=== PATIENT | female | born 1975 | race Two or more races ===

== ENCOUNTER 2017-02-26 13:38 | Emergency (ER) | payer SELFPAY ==
[~2017-02-26] VITALS: Ht 121.9 cm; Wt 72.6 kg
[2017-02-26] MEDS ORDERED: NKM (13:46)
[2017-02-26] MEDS ORDERED: Famotidine 20 MG/ 2ML VIAL IVP ONE (14:00)
[2017-02-26] MEDS ORDERED: Dicyclomine HCl 10mg/5ml oral soln ORAL ONE (14:00)
[2017-02-26] MEDS ORDERED: Lidocaine 2% Visc 15ml soln ORAL ONE (14:00)
[2017-02-26] MEDS ORDERED: Mylanta II UD 30ml ORAL ONE (14:00)
[2017-02-26 14:12] LABS: MEAN CORPUSCULAR HEMOGLOBIN 22.9 PG (27.0-31.0); MEAN CORPUSCULAR HGB CONC 29.9 G/DL (32.0-36.0); MEAN CORPUSCULAR VOLUME 76 FL (80-99); MEAN PLATELET VOLUME 7.6 FL (6.5-10.1); PLATELET COUNT 419 K/UL (150-450); RED BLOOD COUNT 4.45 M/UL (4.20-5.40); RED CELL DISTRIBUTION WIDTH 15.7 % (11.6-14.8); WHITE BLOOD COUNT 12.6 K/UL (4.8-10.8)
[2017-02-26 14:14] LABS: APPEARANCE,URINE SLIGHTLY CLOUDY; KETONES,URINE 2+ (NEGATIVE); LEUKOCYTE ESTERASE ,URINE 2+ (NEGATIVE); NITRITE,URINE NEGATIVE (NEGATIVE); PH,URINE 6.5 (4.5-8.0); PROTEIN,URINE 2+ (NEGATIVE); UROBILINOGEN,URINE NORMAL MG/DL (0.0-1.0)
[2017-02-26 14:22] LABS: BACTERIA,URINE MODERATE /HPF; SQUAMOUS EPITHELIAL CELL,UR MANY /LPF (NONE/OCC); WBC,URINE 30-40 /HPF (0 - 2)
[2017-02-26 14:30] LABS: ALANINE AMINOTRANSFERASE 12 U/L (3-33); ALBUMIN/GLOBULIN RATIO 1.1 (1.0-2.7); ANION GAP 21 (5-15); ASPARTATE AMINO TRANSFERASE 22 U/L (5-40); CALCIUM 8.8 mg/dL (8.6-10.2); CARBON DIOXIDE 18 mEQ/L (20-30); CHLORIDE 98 mEQ/L (98-107); CREATININE 0.6 mg/dL (0.5-0.9); GLOMERULAR FILTRATION RATE > 60 mL/min (>60); HEMOLYSIS 1; LIPASE 32 U/L (< 60); POTASSIUM 2.9 mEQ/L (3.4-4.9); SODIUM 137 mEQ/L (135-145); TOTAL PROTEIN 7.9 g/dL (6.6-8.7)
[2017-02-26 14:35] LABS: BAND NEUTROPHILS % (MANUAL) 0 % (0-8); BASOPHILS % (MANUAL) 0 % (0-2); EOSINOPHILS % (MANUAL) 0 % (0-3); LYMPHOCYTES % (MANUAL) 6 % (20-45); NEUTROPHILS % (MANUAL) 90 % (45-75); PLATELET ESTIMATE ADEQUATE; TOTAL CELLS COUNTED 100
[2017-02-26 14:36] LABS: ANISOCYTOSIS 1+; HYPOCHROMASIA 1+; MICROCYTES 1+; PLATELET MORPHOLOGY NORMAL
[2017-02-26] MEDS ORDERED: cefTRIAXone 1 GM in NS 55 ML IVPB ONE (14:45)
--- NOTE | 2017-02-26 15:02 | Emergency Room Report ---
History of Present Illness General Chief Complaint: Nausea, Vomiting, and Diarrhea Source: Patient Present Illness HPI 41-year-old female presents to ED complaining of abdominal pain with vomiting and diarrhea. States symptoms started this morning. Notes cramping abdominal pain, 4/10, nonradiating. With full episodes of watery diarrhea and vomiting. Patient states she feels weak. Denies fevers chills. Denies recent antibiotic use or travel. No other aggravating relieving factors. Denies any other associated symptoms Allergies: Coded Allergies: No Known Allergies (Unverified , 02/26/17) Patient History Past Medical History: none Past Surgical History: none Pertinent Family History: none Social History: Denies: alcohol use, drug use, smoking Last Menstrual Period: 01/28/17 Now: No : 3 Para: 4 Immunizations: UTD Reviewed Nursing Documentation: PMH: Agreed, PSxH: Agreed Nursing Documentation-PMH Past Medical History: No Stated History Review of Systems All Other Systems: negative except mentioned in HPI Physical Exam Vital Signs Date Time Temp Pulse Resp B/P Pulse Ox O2 Delivery O2 Flow Rate FiO2 02/26/17 13:44 98.2 88 20 163/73 100 Room Air Sp02 EP Interpretation: reviewed, normal General Appearance: no apparent distress, alert, GCS 15, non-toxic Head: normocephalic, atraumatic Eyes: bilateral eye PERRL, bilateral eye normal inspection ENT: hearing grossly normal, normal pharynx, no angioedema, normal voice Neck: full range of motion, supple/symm/no masses Respiratory: chest non-tender, lungs clear, normal breath sounds, speaking full sentences Cardiovascular #1: regular rate, rhythm, no edema Cardiovascular #2: 2+ carotid (R), 2+ carotid (L), 2+ radial (R), 2+ radial (L) , 2+ dorsalis pedis (R), 2+ dorsalis pedis (L) Gastrointestinal: normal bowel sounds, soft, non-distended, no guarding, no rebound, tenderness Rectal: deferred Genitourinary: normal inspection, no CVA tenderness Musculoskeletal: back normal, gait/station normal, normal range of motion, non- tender Neurologic: alert, oriented x3, responsive, motor strength/tone normal, sensory intact, speech normal Psychiatric: judgement/insight normal, memory normal, mood/affect normal, no suicidal/homicidal ideation Reflexes: 3+ bicep (R), 3+ bicep (L), 3+ tricep (R), 3+ tricep (L), 3+ knee (R) , 3+ knee (L) Skin: normal color, no rash, warm/dry, well hydrated Lymphatic: no adenopathy Medical Decision Making Diagnostic Impression: Primary Impression: UTI (urinary tract infection) Qualified Codes: N39.0 - Urinary tract infection, site not specified Additional Impression: Gastroenteritis ER Course Hospital Course 41-year-old F presents to ED with cramping abdominal pain with vomiting, diarrhea differential diagnosis: gastritis, SBO, cholecystits, gastroenteritis Clinical course Patient placed on stretcher. 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 After initial history and physical I ordered labs, IV fluids, Zofran and pepcid Labs - minimal leukocytosis, K 2.8, LFTs normal, UA + bacteria Upon reassessment, patient states pain has improved. findings consistent with gastroenteritis Given dose of Rocephin in ED. Potassium repleted I feel this is a highly complex case requiring extensive working including EKG/ Rhythm strip, Xray/CT/US, Blood/urine lab work, repeat exams while in ED, and administration of strong opiates/narcotics for pain control, admission to hospital or close patient follow up. Diagnosis - gastroenteritis, UTI Stable and discharged to home with prescriptions for zofran, keflex, bentyl. Followup with PMD. Return to ED if symptoms recur or worsen Labs Test 02/26/17 13:51 White Blood Count 12.6 K/UL (4.8-10.8) Red Blood Count 4.45 M/UL (4.20-5.40) Hemoglobin 10.2 G/DL (12.0-16.0) Hematocrit 34.0 % (37.0-47.0) Mean Corpuscular Volume 76 FL (80-99) Mean Corpuscular Hemoglobin 22.9 PG (27.0-31.0) Mean Corpuscular Hemoglobin Concent 29.9 G/DL (32.0-36.0) Red Cell Distribution Width 15.7 % (11.6-14.8) Platelet Count 419 K/UL (150-450) Mean Platelet Volume 7.6 FL (6.5-10.1) Neutrophils (%) (Auto) % (45.0-75.0) Lymphocytes (%) (Auto) % (20.0-45.0) Monocytes (%) (Auto) % (1.0-10.0) Eosinophils (%) (Auto) % (0.0-3.0) Basophils (%) (Auto) % (0.0-2.0) Differential Total Cells Counted 100 Neutrophils % (Manual) 90 % (45-75) Lymphocytes % (Manual) 6 % (20-45) Monocytes % (Manual) 4 % (1-10) Eosinophils % (Manual) 0 % (0-3) Basophils % (Manual) 0 % (0-2) Band Neutrophils 0 % (0-8) Platelet Estimate Adequate Platelet Morphology Normal Hypochromasia 1+ Anisocytosis 1+ Microcytosis 1+ Urine Color Pale yellow Urine Appearance Slightly cloudy Urine pH 6.5 (4.5-8.0) Urine Specific [place] 1.010 (1.005-1.035) Urine Protein 2+ (NEGATIVE) Urine Glucose (UA) Negative (NEGATIVE) Urine Ketones 2+ (NEGATIVE) Urine Occult Blood 5+ (NEGATIVE) Urine Nitrite Negative (NEGATIVE) Urine Bilirubin Negative (NEGATIVE) Urine Urobilinogen Normal MG/DL (0.0-1.0) Urine Leukocyte Esterase 2+ (NEGATIVE) Urine RBC 5-10 /HPF (0 - 2) Urine WBC 30-40 /HPF (0 - 2) Urine Squamous Epithelial Cells Many /LPF (NONE/OCC) Urine Bacteria Moderate /HPF (NONE) Urine HCG, Qualitative Negative Sodium Level 137 mEQ/L (135-145) Potassium Level 2.9 mEQ/L (3.4-4.9) Chloride Level 98 mEQ/L (98-107) Carbon Dioxide Level 18 mEQ/L (20-30) Anion Gap 21 (5-15) Blood Urea Nitrogen 14 mg/dL (7-23) Creatinine 0.6 mg/dL (0.5-0.9) Estimat Glomerular Filtration Rate > 60 mL/min (>60) Glucose Level 118 mg/dL (74-106) Calcium Level 8.8 mg/dL (8.6-10.2) Total Bilirubin 0.3 mg/dL (0.0-1.2) Aspartate Amino Transf (AST/SGOT) 22 U/L (5-40) Alanine Aminotransferase (ALT/SGPT) 12 U/L (3-33) Alkaline Phosphatase 66 U/L (35-104) Total Protein 7.9 g/dL (6.6-8.7) Albumin 4.3 g/dL (3.5-5.2) Globulin 3.6 g/dL Albumin/Globulin Ratio 1.1 (1.0-2.7) Lipase 32 U/L (< 60) Last Vital Signs Date Time Temp Pulse Resp B/P Pulse Ox O2 Delivery O2 Flow Rate FiO2 02/26/17 13:44 98.2 88 20 163/73 100 Room Air Status: improved Disposition: HOME, SELF-CARE Condition: Stable Scripts Cephalexin* (KEFLEX*) 500 Mg Capsule 500 MG ORAL Q6H, #28 CAP 0 Refills Prov: GALINDO BEATTY M.D. 02/26/17 Dicyclomine Hcl* (BENTYL*) 10 Mg Capsule 10 MG ORAL FOUR TIMES A DAY, #20 CAP Prov: GALINDO BEATTY M.D. 02/26/17 Ondansetron Odt* (ZOFRAN ODT*) 4 Mg Tab.rapdis 4 MG ORAL Q6H Y for Nausea & Vomiting, #30 TAB 0 Refills Prov: GALINDO BEATTY M.D. 02/26/17 Referrals: NOT CHOSEN RADHA/,REFERRING (PCP) GALINDO BEATTY M.D. Feb 26, 2017 15:02
[2017-02-26 15:27] VITALS: BP 124/73
[2017-02-26] MEDS ORDERED: KEFLEX500 MG ORAL (15:34)
[2017-02-26] MEDS ORDERED: ZOFRAN ODT4 MG ORAL (15:34)
[2017-02-26] MEDS ORDERED: BENTYL10 MG ORAL (15:34)
[2017-02-26 15:56] VITALS: BP 123/69
== END 2017-02-26 15:56 | disposition home or self-care (01) ==
LOC: EMR 14:16
DX: N39.0 Urinary tract infection, site not specified (principal); K52.9 Noninfective gastroenteritis and colitis, unspecified; D72.829 Elevated white blood cell count, unspecified
CPT/HCPCS: 36415; 80053; 81003; 81025; 83690; 85007; 85025; 87086; 96374; 96375; 99284; J0696; J2405; S0028; J8499

== ENCOUNTER 2017-05-30 16:24 | Inpatient (IN) | payer MEDICAID ==
[~2017-05-30] VITALS: Ht 152.4 cm; Wt 68.0 kg
[~2017-05-30 16:24] MED LIST: BENTYL10 MG ORAL; KEFLEX500 MG ORAL; NKM; ZOFRAN ODT4 MG ORAL
[2017-05-30 17:44] LABS: APPEARANCE,URINE CLEAR; KETONES,URINE NEGATIVE (NEGATIVE); LEUKOCYTE ESTERASE ,URINE NEGATIVE (NEGATIVE); NITRITE,URINE NEGATIVE (NEGATIVE); PH,URINE 8 (4.5-8.0); PROTEIN,URINE NEGATIVE (NEGATIVE); UROBILINOGEN,URINE NORMAL MG/DL (0.0-1.0)
[2017-05-30 17:44] LABS: BASOPHILS % (AUTO) 1.1 % (0.0-2.0); EOSINOPHILS % (AUTO) 0.6 % (0.0-3.0); LYMPHOCYTES % (AUTO) 12.4 % (20.0-45.0); MEAN CORPUSCULAR HEMOGLOBIN 21.3 PG (27.0-31.0); MEAN CORPUSCULAR HGB CONC 27.8 G/DL (32.0-36.0); MEAN CORPUSCULAR VOLUME 77 FL (80-99); MEAN PLATELET VOLUME 5.9 FL (6.5-10.1); MONOCYTES % (AUTO) 5.6 % (1.0-10.0); NEUTROPHILS % (AUTO) 80.3 % (45.0-75.0); PLATELET COUNT 409 K/UL (150-450); RED BLOOD COUNT 3.81 M/UL (4.20-5.40); RED CELL DISTRIBUTION WIDTH 14.9 % (11.6-14.8); WHITE BLOOD COUNT 9.8 K/UL (4.8-10.8)
--- NOTE | 2017-05-30 17:45 | Emergency Room Report ---
History of Present Illness General Chief Complaint: Dizziness Source: Patient Present Illness HPI 42-year-old female presents to the emergency department complaining of several episodes x1 month of feeling dizzy and presyncopal. Patient reports one month ago she did have syncopal episode while at [employer] patient states that she begins to feel dizzy, breaks out in a cold sweat and feels as though she was going to faint. Patient denies chest pain, palpitations, FLETCHER, tinnitus, vertigo , loss of vision or floaters. She denies Past medical history or pertinent family medical history. She states she is otherwise healthy. No recent head trauma. no neck or back pain. She denies recent illness other than GE over a month ago,denies recent travel. pt. reports craving ice frequently, denies daily lethargy. pt. denies N/V/F/C. pt. reports heavy periods. Denies Changes in Vision, Sensation, paresthesias, or a sudden severe headache. Allergies: Coded Allergies: No Known Allergies (Unverified , 02/26/17) Patient History Past Medical History: see triage record Past Surgical History: none Pertinent Family History: none Last Menstrual Period: 05/22/17 Now: No Immunizations: UTD Reviewed Nursing Documentation: PMH: Agreed, PSxH: Agreed Nursing Documentation-PMH Past Medical History: No Stated History Review of Systems All Other Systems: negative except mentioned in HPI Physical Exam Vital Signs Date Time Temp Pulse Resp B/P (MAP) Pulse Ox O2 Delivery O2 Flow Rate FiO2 05/30/17 16:32 98.1 89 18 167/93 100 Room Air Sp02 EP Interpretation: reviewed, normal General Appearance: no apparent distress, alert, GCS 15, non-toxic Head: normocephalic, atraumatic Eyes: bilateral eye normal inspection, bilateral eye PERRL ENT: hearing grossly normal, normal voice Neck: full range of motion, supple/symm/no masses Respiratory: chest non-tender, lungs clear, normal breath sounds, speaking full sentences Cardiovascular #1: regular rate, rhythm, no edema, normal capillary refill Gastrointestinal: normal bowel sounds, non tender, soft, no guarding, no rebound Rectal: deferred Genitourinary: normal inspection, no CVA tenderness Musculoskeletal: back normal, gait/station normal, normal range of motion, non- tender, no calf tenderness Neurologic: alert, oriented x3, responsive, motor strength/tone normal, sensory intact, cerebellar normal, normal gait, speech normal, no pronator, other - equal patient companion strength, negative hoffmans's Psychiatric: judgement/insight normal, memory normal, mood/affect normal Skin: normal color, no rash, warm/dry, well hydrated Medical Decision Making PA Attestation Dr. ayala is my supervising Physician whom patient management has been discussed with. Diagnostic Impression: Primary Impression: Symptomatic anemia Additional Impression: Dizziness ER Course 42-year-old female presents to the emergency department complaining of several episodes x1 month of feeling dizzy and presyncopal. Patient reports one month ago she did have syncopal episode while at [employer] patient states that she begins to feel dizzy, breaks out in a cold sweat and feels as though she was going to faint. Patient denies chest pain, palpitations, FLETCHER, tinnitus, vertigo , loss of vision or floaters. She denies Past medical history or pertinent family medical history. She states she is otherwise healthy. No recent head trauma. no neck or back pain. She denies recent illness other than GE over a month ago,denies recent travel. pt. reports craving ice frequently, denies daily lethargy. pt. denies N/V/F/C. pt. reports heavy periods. Denies Changes in Vision, Sensation, paresthesias, or a sudden severe headache. Ddx considered but are not limited to Mnire's, BPPV, labrinitis, Anemia, cerebellar stroke, hypovolemia, cardiac cause, anxiety reaction Vital signs: are WNL, pt. is afebrile H&PE are most consistent with : normal PE, no neurological deficit. ORDERS: -CBC : moderate anemia RBC's 3.81 Hgb: 8.1, Hct: 29 -CMP: unremarkable -UA: Unremarkable other than some rbc's and occult blood. presence of few bacteria, few squamous, and no inflammatory marker elevation consistent with contamination. - EK BPM NSR - no acute ST changes reviewed by Dr. Leger, his interpretation was scribed by SANJANA Araya -PT/PTT: WNL -Urine Hcg: Negative -Type and Screen: O POSITIVE ED INTERVENTIONS: -1 Liter NS Bolus DISPOSITION: at this time pt. will be admitted to Dr. Gordon for Symptomatic Anemia. Dr. Gordon agreed to admit the pt. and to continue pt. care management. Labs Test 05/30/17 17:03 05/30/17 17:12 05/30/17 19:23 Urine Color Pale yellow Urine Appearance Clear Urine pH 8 (4.5-8.0) Urine Specific [place] 1.010 (1.005-1.035) Urine Protein Negative (NEGATIVE) Urine Glucose (UA) Negative (NEGATIVE) Urine Ketones Negative (NEGATIVE) Urine Occult Blood 4+ (NEGATIVE) Urine Nitrite Negative (NEGATIVE) Urine Bilirubin Negative (NEGATIVE) Urine Urobilinogen Normal MG/DL (0.0-1.0) Urine Leukocyte Esterase Negative (NEGATIVE) Urine RBC 5-10 /HPF (0 - 2) Urine WBC 0-2 /HPF (0 - 2) Urine Squamous Epithelial Cells Few /LPF (NONE/OCC) Urine Bacteria Few /HPF (NONE) White Blood Count 9.8 K/UL (4.8-10.8) Red Blood Count 3.81 M/UL (4.20-5.40) Hemoglobin 8.1 G/DL (12.0-16.0) Hematocrit 29.3 % (37.0-47.0) Mean Corpuscular Volume 77 FL (80-99) Mean Corpuscular Hemoglobin 21.3 PG (27.0-31.0) Mean Corpuscular Hemoglobin Concent 27.8 G/DL (32.0-36.0) Red Cell Distribution Width 14.9 % (11.6-14.8) Platelet Count 409 K/UL (150-450) Mean Platelet Volume 5.9 FL (6.5-10.1) Neutrophils (%) (Auto) 80.3 % (45.0-75.0) Lymphocytes (%) (Auto) 12.4 % (20.0-45.0) Monocytes (%) (Auto) 5.6 % (1.0-10.0) Eosinophils (%) (Auto) 0.6 % (0.0-3.0) Basophils (%) (Auto) 1.1 % (0.0-2.0) Sodium Level 136 MMOL/L (136-145) Potassium Level 3.5 MMOL/L (3.5-5.1) Chloride Level 102 MMOL/L (98-107) Carbon Dioxide Level 25 MMOL/L (21-32) Anion Gap 9 (5-15) Blood Urea Nitrogen 11 mg/dL (7-18) Creatinine 0.8 MG/DL (0.55-1.30) Estimat Glomerular Filtration Rate > 60 mL/min (>60) Glucose Level 128 MG/DL (74-106) Calcium Level 9.1 MG/DL (8.5-10.1) Prothrombin Time 10.7 SEC (9.30-11.50) Prothromb Time International Ratio 1.0 (0.9-1.1) Activated Partial Thromboplast Time 26 SEC (23-33) EKG Diagnostic Results EP Interpretation: Dr. Leger Rate: normal - 69 bpm Rhythm: NSR ST Segments: no acute changes ASA given to the pt in ED: No PA Scribe Text Dr. Leger's preliminary EKG interpretation is being scribed by SANJANA Araya Last Vital Signs Date Time Temp Pulse Resp B/P (MAP) Pulse Ox O2 Delivery O2 Flow Rate FiO2 05/30/17 16:32 98.1 89 18 167/93 100 Room Air Disposition: ADMITTED INPATIENT Condition: Stable Referrals: ISRAEL GARCIA,REFERRING (PCP) Tisha Araya May 30, 2017 17:45
[2017-05-30 17:56] LABS: ANION GAP 9 (5-15); CALCIUM 9.1 MG/DL (8.5-10.1); CARBON DIOXIDE 25 MMOL/L (21-32); CHLORIDE 102 MMOL/L (98-107); CREATININE 0.8 MG/DL (0.55-1.30); GLOMERULAR FILTRATION RATE > 60 mL/min (>60); POTASSIUM 3.5 MMOL/L (3.5-5.1); SODIUM 136 MMOL/L (136-145)
[2017-05-30 18:03] LABS: BACTERIA,URINE FEW /HPF; SQUAMOUS EPITHELIAL CELL,UR FEW /LPF (NONE/OCC); WBC,URINE 0-2 /HPF (0 - 2)
[2017-05-30 20:00] VITALS: BP 154/83
[2017-05-30 20:09] LABS: PROTHROMBIN TIME 10.7 SEC (9.30-11.50)
[2017-05-30] MEDS ORDERED: Mylanta II UD 30ml ORAL PRN (23:15)
[2017-05-30] MEDS ORDERED: Zolpidem 5mg tab ORAL PRN (23:15)
[2017-05-30] MEDS ORDERED: Morphine Sulfate 2mg/ml Inj IVP PRN (23:15)
[2017-05-30] MEDS ORDERED: Miralax 17gm pkt ORAL PRN (23:15)
[2017-05-30] MEDS ORDERED: LORazepam Inj 2mg/ml 1ml IV PRN (23:15)
[2017-05-31 00:24] VITALS: BP 153/98
[2017-05-31 04:00] VITALS: BP 123/74
[2017-05-31 08:15] VITALS: BP 130/80
[2017-05-31 08:34] LABS: MEAN CORPUSCULAR HEMOGLOBIN 22.8 PG (27.0-31.0); MEAN CORPUSCULAR HGB CONC 30.2 G/DL (32.0-36.0); MEAN CORPUSCULAR VOLUME 75 FL (80-99); MEAN PLATELET VOLUME 6.1 FL (6.5-10.1); PLATELET COUNT 443 K/UL (150-450); RED BLOOD COUNT 4.04 M/UL (4.20-5.40); WHITE BLOOD COUNT 3.3 K/UL (4.8-10.8)
[2017-05-31 08:58] LABS: INR 1.1 (0.9-1.1)
[2017-05-31 09:42] LABS: ALANINE AMINOTRANSFERASE 19 U/L (12-78); ALBUMIN/GLOBULIN RATIO 0.8 (1.0-2.7); ANION GAP 9 (5-15); ASPARTATE AMINO TRANSFERASE 17 U/L (15-37); CALCIUM 8.2 MG/DL (8.5-10.1); CARBON DIOXIDE 24 MMOL/L (21-32); CHLORIDE 108 MMOL/L (98-107); CREATININE 0.7 MG/DL (0.55-1.30); GLOMERULAR FILTRATION RATE > 60 mL/min (>60); POTASSIUM 3.3 MMOL/L (3.5-5.1); SODIUM 141 MMOL/L (136-145); THYROID STIMULATING HORMONE 2.844 uiU/mL (0.360-3.740); TOTAL PROTEIN 7.2 G/DL (6.4-8.2)
[2017-05-31 10:09] LABS: ERYTHROCYTE SEDIMENTATION RATE 47 MM/HR (0-20); IRON 21 ug/dL (50-175); TOTAL IRON BINDING CAPACITY 363 ug/dL (250-450)
[2017-05-31 10:47] LABS: LACTATE DEHYDROGENASE 201 U/L (81-234)
[2017-05-31 11:52] VITALS: BP 124/66
[2017-05-31 12:07] LABS: ANISOCYTOSIS 1+; BAND NEUTROPHILS % (MANUAL) 0 % (0-8); BASOPHILS % (MANUAL) 1 % (0-2); EOSINOPHILS % (MANUAL) 2 % (0-3); LYMPHOCYTES % (MANUAL) 25 % (20-45); NEUTROPHILS % (MANUAL) 66 % (45-75); PLATELET ESTIMATE INCREASED; PLATELET MORPHOLOGY NORMAL; TOTAL CELLS COUNTED 100
[2017-05-31 12:08] LABS: HYPOCHROMASIA 2+
[2017-05-31 12:09] LABS: MICROCYTES 1+
[2017-05-31 12:36] LABS: PATH BLOOD SMEAR/OMC SENT TO PATHOLOGIST
[2017-05-31 15:31] VITALS: BP 141/80
--- NOTE | 2017-05-31 15:59 | History and Physical ---
History of Present Illness General Date patient seen: May 30, 2017 Reason for Hospitalization: Dizziness Present Illness HPI 42-year-old female presents to the emergency department complaining of several episodes x1 month of feeling dizzy and presyncopal. Patient denies chest pain , palpitations, FLETCHER, tinnitus, vertigo, loss of vision or floaters. She states she is otherwise healthy. No recent head trauma. no neck or back pain. She denies recent illness other than GE over a month ago,denies recent travel. She was diagnosed to have symptomatic anemia and admitted for further work up. Allergies: Coded Allergies: No Known Allergies (Unverified , 02/26/17) Medication History Scheduled Cephalexin* (Keflex*), 500 MG ORAL Q6H Dicyclomine Hcl* (Bentyl*), 10 MG ORAL FOUR TIMES A DAY No Known Medications* (NKM - No Known Medications*), 0 ., (Reported) Scheduled PRN Ondansetron Odt* (Zofran Odt*), 4 MG ORAL Q6H PRN for Nausea & Vomiting Patient History Healthcare decision maker Resuscitation status Full Code Advanced Directive on File Past Medical/Surgical History Past Medical/Surgical History: (1) Dizziness (2) Anxiety reaction Review of Systems All Other Systems: negative except mentioned in HPI Physical Exam General Appearance: WD/WN, no apparent distress Lines, tubes and drains: peripheral, central line HEENT: normocephalic, atraumatic Neck: non-tender, normal alignment Respiratory/Chest: chest wall non-tender, lungs clear Cardiovascular/Chest: normal peripheral pulses, normal rate Abdomen: normal bowel sounds, non tender Genitourinary/Rectal: normal genital exam Extremities: normal range of motion Neurologic: knuckler II-XII grossly normal Last 24 Hour Vital Signs Date Time Temp Pulse Resp B/P (MAP) Pulse Ox O2 Delivery O2 Flow Rate FiO2 05/31/17 15:31 98.0 89 19 141/80 99 Room Air 05/31/17 11:52 97.7 67 18 124/66 99 Room Air 05/31/17 08:15 97.5 78 19 130/80 100 Room Air 05/31/17 04:00 97.7 69 20 123/74 99 Room Air 05/31/17 00:24 91 16 153/98 99 Room Air 05/31/17 00:24 98.0 91 16 153/98 99 Room Air 05/30/17 20:00 98.3 85 16 154/83 98 Room Air 05/30/17 16:32 98.1 89 18 167/93 100 Room Air Intake and Output 05/31/17 06/01/17 19:00 07:00 Intake Total 240 ml Balance 240 ml Intake Oral 240 ml # Bowel Movements 1 Laboratory Tests Test 05/30/17 17:03 05/30/17 17:12 05/30/17 19:23 05/31/17 06:40 Urine Color Pale yellow Urine Appearance Clear Urine pH 8 (4.5-8.0) Urine Specific [place] 1.010 (1.005-1.035) Urine Protein Negative (NEGATIVE) Urine Glucose (UA) Negative (NEGATIVE) Urine Ketones Negative (NEGATIVE) Urine Occult Blood 4+ (NEGATIVE) H Urine Nitrite Negative (NEGATIVE) Urine Bilirubin Negative (NEGATIVE) Urine Urobilinogen Normal MG/DL (0.0-1.0) Urine Leukocyte Esterase Negative (NEGATIVE) Urine RBC 5-10 /HPF (0 - 2) H Urine WBC 0-2 /HPF (0 - 2) Urine Squamous Epithelial Cells Few /LPF (NONE/OCC) Urine Bacteria Few /HPF (NONE) Urine HCG, Qualitative Negative White Blood Count 9.8 K/UL (4.8-10.8) 3.3 K/UL (4.8-10.8) #L Red Blood Count 3.81 M/UL (4.20-5.40) L 4.04 M/UL (4.20-5.40) L Hemoglobin 8.1 G/DL (12.0-16.0) L 9.2 G/DL (12.0-16.0) L Hematocrit 29.3 % (37.0-47.0) L 30.4 % (37.0-47.0) L Mean Corpuscular Volume 77 FL (80-99) L 75 FL (80-99) L Mean Corpuscular Hemoglobin 21.3 PG (27.0-31.0) L 22.8 PG (27.0-31.0) L Mean Corpuscular Hemoglobin Concent 27.8 G/DL (32.0-36.0) L 30.2 G/DL (32.0-36.0) L Red Cell Distribution Width 14.9 % (11.6-14.8) H 15.0 % (11.6-14.8) H Platelet Count 409 K/UL (150-450) 443 K/UL (150-450) Mean Platelet Volume 5.9 FL (6.5-10.1) L 6.1 FL (6.5-10.1) L Neutrophils (%) (Auto) 80.3 % (45.0-75.0) H % (45.0-75.0) Lymphocytes (%) (Auto) 12.4 % (20.0-45.0) L % (20.0-45.0) Monocytes (%) (Auto) 5.6 % (1.0-10.0) % (1.0-10.0) Eosinophils (%) (Auto) 0.6 % (0.0-3.0) % (0.0-3.0) Basophils (%) (Auto) 1.1 % (0.0-2.0) % (0.0-2.0) Sodium Level 136 MMOL/L (136-145) 141 MMOL/L (136-145) Potassium Level 3.5 MMOL/L (3.5-5.1) 3.3 MMOL/L (3.5-5.1) L Chloride Level 102 MMOL/L (98-107) 108 MMOL/L (98-107) H Carbon Dioxide Level 25 MMOL/L (21-32) 24 MMOL/L (21-32) Anion Gap 9 (5-15) 9 (5-15) Blood Urea Nitrogen 11 mg/dL (7-18) 9 mg/dL (7-18) Creatinine 0.8 MG/DL (0.55-1.30) 0.7 MG/DL (0.55-1.30) Estimat Glomerular Filtration Rate > 60 mL/min (>60) > 60 mL/min (>60) Glucose Level 128 MG/DL (74-106) H 87 MG/DL (74-106) Calcium Level 9.1 MG/DL (8.5-10.1) 8.2 MG/DL (8.5-10.1) L Prothrombin Time 10.7 SEC (9.30-11.50) 11.0 SEC (9.30-11.50) Prothromb Time International Ratio 1.0 (0.9-1.1) 1.1 (0.9-1.1) Activated Partial Thromboplast Time 26 SEC (23-33) 25 SEC (23-33) Differential Total Cells Counted 100 Neutrophils % (Manual) 66 % (45-75) Lymphocytes % (Manual) 25 % (20-45) Monocytes % (Manual) 6 % (1-10) Eosinophils % (Manual) 2 % (0-3) Basophils % (Manual) 1 % (0-2) Band Neutrophils 0 % (0-8) Platelet Estimate Increased H Platelet Morphology Normal Hypochromasia 2+ Anisocytosis 1+ Microcytosis 1+ Erythrocyte Sedimentation Rate 47 MM/HR (0-20) H Reticulocyte Count 1.0 % (0.0-2.0) Iron Level 21 ug/dL (50-175) L Total Iron Binding Capacity 363 ug/dL (250-450) Percent Iron Saturation 6 % (15-50) L Unsaturated Iron Binding 342 ug/dL (112-346) Total Bilirubin 0.3 MG/DL (0.2-1.0) Aspartate Amino Transf (AST/SGOT) 17 U/L (15-37) Alanine Aminotransferase (ALT/SGPT) 19 U/L (12-78) Alkaline Phosphatase 50 U/L (46-116) Lactate Dehydrogenase 201 U/L (81-234) Total Protein 7.2 G/DL (6.4-8.2) Albumin 3.3 G/DL (3.4-5.0) L Globulin 3.9 g/dL Albumin/Globulin Ratio 0.8 (1.0-2.7) L Carcinoembryonic Antigen Pending Vitamin B12 Level 386 PG/ML (193-986) Folate Pending Thyroid Stimulating Hormone (TSH) 2.844 uiU/mL (0.360-3.740) Test 05/31/17 10:50 Stool Occult Blood Negative (NEGATIVE) Height (Feet): 5 Height (Inches): 0.00 Weight (Pounds): 150 Medications Current Medications Medications (Trade) Dose Ordered Sig/Kathy Route PRN Reason Start Time Stop Time Status Last Admin Dose Admin Acetaminophen (Tylenol) 650 mg Q4H PRN ORAL Mild Pain/Temp > 100.5 05/31/17 12:00 06/30/17 11:59 05/31/17 11:59 Al Hydroxide/Mg Hydroxide (Mylanta II) 30 ml Q6H PRN ORAL dyspepsia 05/30/17 23:15 06/29/17 23:14 Dextrose (Dextrose 50%) STAT PRN IV Hypoglycemia 05/30/17 23:15 06/29/17 23:14 Lorazepam (Ativan 2mg/ml 1ml) 0.5 mg Q4H PRN IV For Anxiety 05/30/17 23:15 06/06/17 23:14 Morphine Sulfate (Morphine Sulfate) 1 mg EVERY 4 HOURS PRN IVP For Pain 05/30/17 23:15 06/06/17 23:14 Ondansetron HCl (Zofran) 4 mg Q6H PRN IVP Nausea & Vomiting 05/30/17 23:15 06/29/17 23:14 Polyethylene Glycol (Miralax) 17 gm HSPRN PRN ORAL Constipation 05/30/17 23:15 06/29/17 23:14 Zolpidem Tartrate (Ambien) 5 mg HSPRN PRN ORAL Insomnia 05/30/17 23:15 06/06/17 23:14 Assessment/Plan Problem List: (1) Symptomatic anemia ICD Codes: D64.9 - Anemia, unspecified SNOMED: [id number] Assessment/Plan prbc prn anemai w/u Hem evaluaiDEBORA Sultana May 31, 2017 15:59
--- NOTE | 2017-05-31 16:00 | Pulmonology Progress Note ---
Assessment/Plan Problems: (1) Symptomatic anemia Assessment/Plan h/h better no need for transfusion OB negative pt can be discharged with outpatient w/u. Subjective ROS Limited/Unobtainable: No Constitutional: Reports: no symptoms HEENT: Repors: no symptoms Respiratory: Reports: no symptoms Allergies: Coded Allergies: No Known Allergies (Unverified , 02/26/17) Objective Last 24 Hour Vital Signs Date Time Temp Pulse Resp B/P (MAP) Pulse Ox O2 Delivery O2 Flow Rate FiO2 05/31/17 15:31 98.0 89 19 141/80 99 Room Air 05/31/17 11:52 97.7 67 18 124/66 99 Room Air 05/31/17 08:15 97.5 78 19 130/80 100 Room Air 05/31/17 04:00 97.7 69 20 123/74 99 Room Air 05/31/17 00:24 91 16 153/98 99 Room Air 05/31/17 00:24 98.0 91 16 153/98 99 Room Air 05/30/17 20:00 98.3 85 16 154/83 98 Room Air 05/30/17 16:32 98.1 89 18 167/93 100 Room Air Intake and Output 05/31/17 06/01/17 19:00 07:00 Intake Total 240 ml Balance 240 ml Intake Oral 240 ml # Bowel Movements 1 General Appearance: WD/WN HEENT: normocephalic, atraumatic Respiratory/Chest: chest wall non-tender, lungs clear Breasts: no masses Cardiovascular: normal rate Abdomen: normal bowel sounds, soft, non tender Genitourinary: normal external genitalia Extremities: no cyanosis 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, no motor/sensory deficits Laboratory Tests 05/30/17 17:03: Urine Color Pale yellow, Urine Appearance Clear, Urine pH 8, Urine Specific [place] 1.010, Urine Protein Negative, Urine Glucose (UA) Negative, Urine Ketones Negative, Urine Occult Blood 4+H, Urine Nitrite Negative, Urine Bilirubin Negative, Urine Urobilinogen Normal, Urine Leukocyte Esterase Negative , Urine RBC 5-10H, Urine WBC 0-2, Urine Squamous Epithelial Cells Few, Urine Bacteria Few, Urine HCG, Qualitative Negative 05/30/17 17:12: White Blood Count 9.8, Red Blood Count 3.81L, Hemoglobin 8.1L, Hematocrit 29.3L , Mean Corpuscular Volume 77L, Mean Corpuscular Hemoglobin 21.3L, Mean Corpuscular Hemoglobin Concent 27.8L, Red Cell Distribution Width 14.9H, Platelet Count 409, Mean Platelet Volume 5.9L, Neutrophils (%) (Auto) 80.3H, Lymphocytes (%) (Auto) 12.4L, Monocytes (%) (Auto) 5.6, Eosinophils (%) (Auto) 0.6, Basophils (%) (Auto) 1.1, Sodium Level 136, Potassium Level 3.5, Chloride Level 102, Carbon Dioxide Level 25, Anion Gap 9, Blood Urea Nitrogen 11, Creatinine 0.8, Estimat Glomerular Filtration Rate > 60, Glucose Level 128H, Calcium Level 9.1 05/30/17 19:23: Prothrombin Time 10.7, Prothromb Time International Ratio 1.0, Activated Partial Thromboplast Time 26 05/31/17 06:40: White Blood Count 3.3#L, Red Blood Count 4.04L, Hemoglobin 9.2L, Hematocrit 30.4L, Mean Corpuscular Volume 75L, Mean Corpuscular Hemoglobin 22.8L, Mean Corpuscular Hemoglobin Concent 30.2L, Red Cell Distribution Width 15.0H, Platelet Count 443, Mean Platelet Volume 6.1L, Neutrophils (%) (Auto) , Lymphocytes (%) (Auto) , Monocytes (%) (Auto) , Eosinophils (%) (Auto) , Basophils (%) (Auto) , Sodium Level 141, Potassium Level 3.3L, Chloride Level 108H, Carbon Dioxide Level 24, Anion Gap 9, Blood Urea Nitrogen 9, Creatinine 0.7, Estimat Glomerular Filtration Rate > 60, Glucose Level 87, Calcium Level 8.2L, Prothrombin Time 11.0, Prothromb Time International Ratio 1.1, Activated Partial Thromboplast Time 25, Differential Total Cells Counted 100, Neutrophils % (Manual) 66, Lymphocytes % (Manual) 25, Monocytes % (Manual) 6, Eosinophils % (Manual) 2, Basophils % (Manual) 1, Band Neutrophils 0, Platelet Estimate IncreasedH, Platelet Morphology Normal, Hypochromasia 2+, Anisocytosis 1+, Microcytosis 1+, Erythrocyte Sedimentation Rate 47H, Reticulocyte Count 1.0, Iron Level 21L, Total Iron Binding Capacity 363, Percent Iron Saturation 6L, Unsaturated Iron Binding 342, Total Bilirubin 0.3, Aspartate Amino Transf (AST/ SGOT) 17, Alanine Aminotransferase (ALT/SGPT) 19, Alkaline Phosphatase 50, Lactate Dehydrogenase 201, Total Protein 7.2, Albumin 3.3L, Globulin 3.9, Albumin/Globulin Ratio 0.8L, Carcinoembryonic Antigen [Pending], Vitamin B12 Level 386, Folate [Pending], Thyroid Stimulating Hormone (TSH) 2.844 05/31/17 10:50: Stool Occult Blood Negative Current Medications Medications (Trade) Dose Ordered Sig/Kathy Route PRN Reason Start Time Stop Time Status Last Admin Dose Admin Acetaminophen (Tylenol) 650 mg Q4H PRN ORAL Mild Pain/Temp > 100.5 05/31/17 12:00 06/30/17 11:59 05/31/17 11:59 Al Hydroxide/Mg Hydroxide (Mylanta II) 30 ml Q6H PRN ORAL dyspepsia 05/30/17 23:15 06/29/17 23:14 Dextrose (Dextrose 50%) STAT PRN IV Hypoglycemia 05/30/17 23:15 06/29/17 23:14 Lorazepam (Ativan 2mg/ml 1ml) 0.5 mg Q4H PRN IV For Anxiety 05/30/17 23:15 06/06/17 23:14 Morphine Sulfate (Morphine Sulfate) 1 mg EVERY 4 HOURS PRN IVP For Pain 05/30/17 23:15 06/06/17 23:14 Ondansetron HCl (Zofran) 4 mg Q6H PRN IVP Nausea & Vomiting 05/30/17 23:15 06/29/17 23:14 Polyethylene Glycol (Miralax) 17 gm HSPRN PRN ORAL Constipation 05/30/17 23:15 06/29/17 23:14 Zolpidem Tartrate (Ambien) 5 mg HSPRN PRN ORAL Insomnia 05/30/17 23:15 06/06/17 23:14 DEBORA MADDEN May 31, 2017 16:00
[2017-05-31] MEDS ORDERED: MULTIVITAMINS1 EAC2 ORAL (16:27)
[2017-05-31] MEDS ORDERED: FERROUS SULFAT325 MG ORAL (16:27)
[2017-06-01 13:38] LABS: OTHERS PATHOLOGIST COMMENT
--- NOTE | 2017-06-02 11:14 | Discharge Summary ---
Discharge Summary Hospital Course Date of Admission May 30, 2017 at 22:54 Date of Discharge May 31, 2017 at 17:58 Admitting Diagnosis ASYMPTOMATIC ANEMIA MICHAEL Mcgee is a 42 year old female who was admitted on May 30, 2017 at 22: 54 for Asymtomatic Anemia Hospital Course [id number] Discharge Discharge Disposition Patient was discharged to Home (01) Discharge Diagnoses: Yolanda Herron NP Jun 02, 2017 11:14
--- NOTE | 2017-06-02 23:02 | Discharge Summary 2 SIG ---
DATE OF ADMISSION: 05/30/2017 DATE OF DISCHARGE: 05/31/2017 BRIEF HOSPITAL COURSE: The patient is a 42-year-old female, who presented to ED complaining of several episodes for a month of dizziness and presyncopal episodes. The patient denied chest pain, palpitations, headache, tinnitus, vertigo, or loss of vision or floaters. There was no recent head trauma. No neck or back pain. On evaluation at ED, blood work showed anemia. Hemoglobin was 8 and hematocrit 29. Urinalysis showed occult blood with 5 to 10 RBCs. Urine HCG was negative. EKG was in normal sinus rhythm with no acute changes. She was given IV hydration and was admitted to medical floor for evaluation of symptomatic anemia. Stool OB was negative. Hemoglobin and hematocrit improved, no need for blood transfusion. The patient was eventually discharged home. FINAL DIAGNOSIS: Symptomatic anemia. DISCHARGE DISPOSITION: The patient was discharged home. DISCHARGE MEDICATIONS: Ferrous sulfate and multivitamin daily. Refer to medication list. FOLLOWUP: The patient was advised to follow up with PMD in a week. Katerin Gordon M.D. I have been assigned to dictate discharge summary on this account and I was not involved in the patient's management. Yolanda Herron N.P. DR: NICKY JOB#: [id number] CC:
--- NOTE | 2017-06-10 15:46 | Cardiology Report ---
APPROVED REPORT EKG Measurement Heart [id number] Normal sinus rhythm Normal ECG
== END 2017-05-31 17:58 | disposition home or self-care (01) | DRG 663 ==
LOC: EMR 17:34 → CANBEDREQ 18:36 → 4E 22:54 → EDBEDREQ 23:32
DX: D64.9 Anemia, unspecified (principal)
CPT/HCPCS: 36415; 80048; 80053; 81003; 81025; 82270; 82378; 82607; 82746; 83540; 83550; 83615; 84443; 85007; 85025; 85044; 85060; 85610; 85651; 85730; 86850; 86900; 86901; 93005; 99285

== ENCOUNTER 2017-06-04 10:27 | Emergency (ER) | payer MEDICAID ==
[~2017-06-04] VITALS: Ht 152.4 cm; Wt 68.0 kg
[~2017-06-04 10:27] MED LIST changes: +FERROUS SULFAT325 MG ORAL; +MULTIVITAMINS1 EAC2 ORAL
[2017-06-04 10:40] VITALS: BP 126/75
[2017-06-04] MEDS ORDERED: Sodium Chloride 500ML 500 ML IV ONE (10:50)
[2017-06-04 11:11] LABS: BASOPHILS % (AUTO) 1.2 % (0.0-2.0); EOSINOPHILS % (AUTO) 1.1 % (0.0-3.0); LYMPHOCYTES % (AUTO) 19.9 % (20.0-45.0); MEAN CORPUSCULAR HEMOGLOBIN 22.6 PG (27.0-31.0); MEAN CORPUSCULAR HGB CONC 30.3 G/DL (32.0-36.0); MEAN CORPUSCULAR VOLUME 75 FL (80-99); MEAN PLATELET VOLUME 6.7 FL (6.5-10.1); MONOCYTES % (AUTO) 6.2 % (1.0-10.0); NEUTROPHILS % (AUTO) 71.5 % (45.0-75.0); PLATELET COUNT 414 K/UL (150-450); RED BLOOD COUNT 3.96 M/UL (4.20-5.40); RED CELL DISTRIBUTION WIDTH 15.5 % (11.6-14.8); WHITE BLOOD COUNT 10.2 K/UL (4.8-10.8)
[2017-06-04 11:21] LABS: APPEARANCE,URINE CLEAR; KETONES,URINE NEGATIVE (NEGATIVE); LEUKOCYTE ESTERASE ,URINE NEGATIVE (NEGATIVE); NITRITE,URINE NEGATIVE (NEGATIVE); PH,URINE 8 (4.5-8.0); PROTEIN,URINE NEGATIVE (NEGATIVE); UROBILINOGEN,URINE NORMAL MG/DL (0.0-1.0)
[2017-06-04 11:27] LABS: BACTERIA,URINE OCCASIONAL /HPF; SQUAMOUS EPITHELIAL CELL,UR OCCASIONAL /LPF (NONE/OCC); WBC,URINE 0-2 /HPF (0 - 2)
--- NOTE | 2017-06-04 11:38 | Emergency Room Report ---
History of Present Illness General Chief Complaint: Generalized Weakness Source: Patient, Medical Record Present Illness HPI 42-year-old female presents ED for evaluation. Patient states she's been feeling dizzy and weak for last 2 days. Patient states she was recently discharged in the hospital after treatment for anemia. Patient denies any vaginal bleeding at this time. Patient states he is compliant with the medications prescribed her. Denies chest pain or shortness of breath. Denies fevers or chills. No other aggravating relieving factors. Denies any other associated Allergies: Coded Allergies: No Known Allergies (Unverified , 02/26/17) Patient History Past Medical History: none Past Surgical History: servando Pertinent Family History: none Social History: Denies: smoking, alcohol use, drug use Last Menstrual Period: 05/22/17 Now: No Immunizations: UTD Reviewed Nursing Documentation: PMH: Agreed, PSxH: Agreed Nursing Documentation-PMH Past Medical History: No History, Except For Hx Cardiac Problems: No - anemia Hx Cancer: No Hx Gastrointestinal Problems: Yes - Cholecystectomy Hx Neurological Problems: No Review of Systems All Other Systems: negative except mentioned in HPI Physical Exam Vital Signs Date Time Temp Pulse Resp B/P (MAP) Pulse Ox O2 Delivery O2 Flow Rate FiO2 06/04/17 10:31 98.2 84 16 154/91 100 Room Air Sp02 EP Interpretation: reviewed, normal General Appearance: no apparent distress, alert, GCS 15, non-toxic Head: normocephalic, atraumatic Eyes: bilateral eye normal inspection, bilateral eye PERRL ENT: hearing grossly normal, normal pharynx, no angioedema, normal voice Neck: full range of motion, supple/symm/no masses Respiratory: chest non-tender, lungs clear, normal breath sounds, speaking full sentences Cardiovascular #1: regular rate, rhythm, no edema Cardiovascular #2: 2+ carotid (R), 2+ carotid (L), 2+ radial (R), 2+ radial (L) , 2+ dorsalis pedis (R), 2+ dorsalis pedis (L) Gastrointestinal: normal bowel sounds, non tender, soft, non-distended, no guarding, no rebound Rectal: deferred Genitourinary: normal inspection, no CVA tenderness Musculoskeletal: back normal, gait/station normal, normal range of motion, non- tender Neurologic: alert, oriented x3, responsive, motor strength/tone normal, sensory intact, speech normal Psychiatric: judgement/insight normal, memory normal, mood/affect normal, no suicidal/homicidal ideation Reflexes: 3+ bicep (R), 3+ bicep (L), 3+ tricep (R), 3+ tricep (L), 3+ knee (R) , 3+ knee (L) Skin: normal color, no rash, warm/dry, well hydrated Lymphatic: no adenopathy Medical Decision Making Diagnostic Impression: Primary Impression: Episode of generalized weakness Additional Impression: Anemia Qualified Codes: D64.9 - Anemia, unspecified ER Course Hospital Course 42-year-old female presents to ED complaining of generalized weakness. Recently discharged from hospital for symptomatic anemia Differential diagnoses include: anemia requiring transfusion, dehydration, UTI Clinical course Patient placed on stretcher. After initial history and physical I ordered labs , ekg, ivfs. Labs-hemoglobin and hematocrit within normal limits, no other electrolyte abnormalities. Reassurance given to patient Patient agrees to discharge at this time and will followup with PMD Diagnosis - episode of generalized weakness, anemia Stable and discharged to home. Followup with PMD. Return to ED if symptoms recur or worsen Labs Test 06/04/17 10:44 White Blood Count 10.2 K/UL (4.8-10.8) Red Blood Count 3.96 M/UL (4.20-5.40) Hemoglobin 8.9 G/DL (12.0-16.0) Hematocrit 29.5 % (37.0-47.0) Mean Corpuscular Volume 75 FL (80-99) Mean Corpuscular Hemoglobin 22.6 PG (27.0-31.0) Mean Corpuscular Hemoglobin Concent 30.3 G/DL (32.0-36.0) Red Cell Distribution Width 15.5 % (11.6-14.8) Platelet Count 414 K/UL (150-450) Mean Platelet Volume 6.7 FL (6.5-10.1) Neutrophils (%) (Auto) 71.5 % (45.0-75.0) Lymphocytes (%) (Auto) 19.9 % (20.0-45.0) Monocytes (%) (Auto) 6.2 % (1.0-10.0) Eosinophils (%) (Auto) 1.1 % (0.0-3.0) Basophils (%) (Auto) 1.2 % (0.0-2.0) Urine Color Pale yellow Urine Appearance Clear Urine pH 8 (4.5-8.0) Urine Specific [place] 1.015 (1.005-1.035) Urine Protein Negative (NEGATIVE) Urine Glucose (UA) Negative (NEGATIVE) Urine Ketones Negative (NEGATIVE) Urine Occult Blood 3+ (NEGATIVE) Urine Nitrite Negative (NEGATIVE) Urine Bilirubin Negative (NEGATIVE) Urine Urobilinogen Normal MG/DL (0.0-1.0) Urine Leukocyte Esterase Negative (NEGATIVE) Urine RBC 2-4 /HPF (0 - 2) Urine WBC 0-2 /HPF (0 - 2) Urine Squamous Epithelial Cells Occasional /LPF Urine Bacteria Occasional /HPF (NONE) Urine HCG, Qualitative Negative Sodium Level 135 MMOL/L (136-145) Potassium Level 3.4 MMOL/L (3.5-5.1) Chloride Level 101 MMOL/L (98-107) Carbon Dioxide Level 25 MMOL/L (21-32) Anion Gap 9 (5-15) Blood Urea Nitrogen 12 mg/dL (7-18) Creatinine 0.7 MG/DL (0.55-1.30) Estimat Glomerular Filtration Rate > 60 mL/min (>60) Glucose Level 94 MG/DL (74-106) Calcium Level 9.4 MG/DL (8.5-10.1) Total Bilirubin 0.2 MG/DL (0.2-1.0) Aspartate Amino Transf (AST/SGOT) 17 U/L (15-37) Alanine Aminotransferase (ALT/SGPT) 20 U/L (12-78) Alkaline Phosphatase 53 U/L (46-116) Total Creatine Kinase 107 U/L (26-308) Creatine Kinase MB 0.9 NG/ML (0.0-3.6) Creatine Kinase MB Relative Index 0.8 Troponin I 0.000 ng/mL (0.000-0.056) Total Protein 7.7 G/DL (6.4-8.2) Albumin 3.8 G/DL (3.4-5.0) Globulin 3.9 g/dL Albumin/Globulin Ratio 1.0 (1.0-2.7) EKG Diagnostic Results Rate: normal Rhythm: NSR ST Segments: no acute changes ASA given to the pt in ED: No Rhythm Strip Diag. Results EP Interpretation: yes Rhythm: NSR, no PVC's, no ectopy Last Vital Signs Date Time Temp Pulse Resp B/P (MAP) Pulse Ox O2 Delivery O2 Flow Rate FiO2 06/04/17 10:40 98.2 74 14 126/75 99 Room Air Status: improved Disposition: HOME, SELF-CARE Condition: Stable Referrals: [facility] (PCP) GALINDO BEATTY M.D. Jun 04, 2017 11:38
[2017-06-04 12:43] LABS: ALANINE AMINOTRANSFERASE 20 U/L (12-78); ANION GAP 9 (5-15); ASPARTATE AMINO TRANSFERASE 17 U/L (15-37); CALCIUM 9.4 MG/DL (8.5-10.1); CARBON DIOXIDE 25 MMOL/L (21-32); CHLORIDE 101 MMOL/L (98-107); CKMB 0.9 NG/ML (0.0-3.6); CREATININE 0.7 MG/DL (0.55-1.30); GLOMERULAR FILTRATION RATE > 60 mL/min (>60); POTASSIUM 3.4 MMOL/L (3.5-5.1); SODIUM 135 MMOL/L (136-145); TOTAL PROTEIN 7.7 G/DL (6.4-8.2)
[2017-06-04 13:01] VITALS: BP 121/72
[2017-06-04 13:05] VITALS: BP 121/72
--- NOTE | 2017-06-14 08:30 | Cardiology Report ---
APPROVED REPORT EKG Measurement Heart [id number] Normal sinus rhythm Normal ECG
== END 2017-06-04 13:09 | disposition home or self-care (01) ==
LOC: EMR 10:36
DX: R53.1 Weakness (principal); D64.9 Anemia, unspecified; Z90.49 Acquired absence of other specified parts of digestive tract
CPT/HCPCS: 36415; 80053; 81003; 81025; 82550; 82553; 84484; 85025; 93005; 96361; 96374; 99284

== ENCOUNTER 2018-05-26 12:14 | Emergency (ER) | payer MEDICAID ==
[~2018-05-26] VITALS: Ht 152.4 cm; Wt 68.0 kg
--- NOTE | 2018-05-26 13:17 | Emergency Room Report ---
History of Present Illness General Chief Complaint: Neck Pain Source: Patient Present Illness [facility] Ms. Mcgee is a 43 yo female with history of hypertension and Guzman's palsy. In the middle of the night she felt her neck crack. This morning upon awakening she had left-sided posterior neck pain. She's unable to move her neck to the left without severe pain. She is able to move her head to the right without discomfort. No history of trauma. Denies weakness in arms or legs. She did not take any medications for the pain. She was being evaluated in our [facility] area when she felt as if she was going to pass out. She appeared dazed. She did eat cereal for breakfast this morning. She has had syncope on previous occasion related to anemia. Allergies: Coded Allergies: No Known Allergies (Unverified , 02/26/17) Patient History Past Medical History: other - as per HPI Last Menstrual Period: 05/08/2018 Reviewed Nursing Documentation: PMH: Agreed; PSxH: Agreed Nursing Documentation-PM Past Medical History: No History, Except For Hx Cardiac Problems: No - anemia Hx Hypertension: Yes Hx Cancer: No Hx Gastrointestinal Problems: Yes - Cholecystectomy Hx Neurological Problems: Yes - Guzman's palsy Review of Systems Constitutional: Denies: fever Respiratory: Denies: cough Cardiovascular: Denies: chest pain Gastrointestinal: Denies: abdominal pain Neurological: Denies: numbness, paresthesia, tingling All Other Systems: negative except mentioned in HPI Physical Exam Vital Signs Date Time Temp Pulse Resp B/P (MAP) Pulse Ox O2 Delivery O2 Flow Rate FiO2 05/26/18 12:33 98.5 72 14 128/76 100 Room Air 98.4 Sp02 EP Interpretation: reviewed, normal General Appearance: no apparent distress, alert, GCS 15, non-toxic, other - holding left neck in pain Head: normocephalic, atraumatic Eyes: bilateral eye normal inspection, bilateral eye PERRL ENT: hearing grossly normal, normal pharynx, no angioedema, normal voice Neck: full range of motion, no bony tend, tender - tender with muscle spasm left posterior region, no mass Respiratory: chest non-tender, lungs clear, normal breath sounds, no rhonchi, no respiratory distress, no retraction, no accessory muscle use, speaking full sentences Cardiovascular #1: regular rate, rhythm, no edema, no gallop, no JVD, no murmur Cardiovascular #2: 2+ carotid (R), 2+ carotid (L), 2+ radial (R), 2+ radial (L) , 2+ dorsalis pedis (R), 2+ dorsalis pedis (L) Gastrointestinal: normal bowel sounds, non tender, soft, non-distended, no guarding, no rebound Genitourinary: normal inspection Musculoskeletal: back normal, gait/station normal, normal range of motion, non- tender, calf tenderness Neurologic: alert, oriented x3, responsive, motor strength/tone normal, sensory intact, speech normal Psychiatric: judgement/insight normal, memory normal, mood/affect normal, no suicidal/homicidal ideation Reflexes: 3+ bicep (R), 3+ bicep (L), 3+ tricep (R), 3+ tricep (L), 3+ knee (R) , 3+ knee (L) Skin: normal color, no rash, warm/dry, well hydrated Lymphatic: no adenopathy Medical Decision Making Diagnostic Impression: Primary Impression: DDD (degenerative disc disease), cervical Additional Impressions: Neck pain Near syncope ER Course neck strain with near syncope due to vasovagal syndrome possibly due to pain, CT head normal. CT c spine with DDD at C4-C5, patient feels much better after medication given in ED, Patient understands dx of cervical DDD dc'd home ibuprofen, flexeril, norco EKG Diagnostic Results Rate: normal Rhythm: NSR ST Segments: no acute changes Other Impression nl axis nl intervals no ST elevation no signs of ischemia Last Vital Signs Date Time Temp Pulse Resp B/P (MAP) Pulse Ox O2 Delivery O2 Flow Rate FiO2 05/26/18 12:33 98.5 72 14 128/76 100 Room Air 98.4 Disposition: HOME, SELF-CARE Referrals: NON PHYSICIAN (PCP) Kristen Ritchie MD May 26, 2018 13:17
[2018-05-26] MEDS ORDERED: Ketorolac 30mg Inj IV ONE (13:30)
[2018-05-26] MEDS ORDERED: Norco 5mg/325mg tab ORAL ONE (13:30)
[2018-05-26 13:46] LABS: BASOPHILS % (AUTO) 0.7 % (0.0-2.0); EOSINOPHILS % (AUTO) 0.8 % (0.0-3.0); HEMOGLOBIN 12.7 G/DL (12.0-16.0); LYMPHOCYTES % (AUTO) 16.7 % (20.0-45.0); MEAN CORPUSCULAR VOLUME 87 FL (80-99); MONOCYTES % (AUTO) 6.5 % (1.0-10.0); NEUTROPHILS % (AUTO) 75.3 % (45.0-75.0); PLATELET COUNT 317 K/UL (150-450); RED BLOOD COUNT 4.36 M/UL (4.20-5.40); RED CELL DISTRIBUTION WIDTH 11.8 % (11.6-14.8); WHITE BLOOD COUNT 12.8 K/UL (4.8-10.8)
[2018-05-26 14:00] VITALS: BP 111/63
[2018-05-26 14:01] LABS: ALANINE AMINOTRANSFERASE 22 U/L (12-78); ALBUMIN 3.7 G/DL (3.4-5.0); ALBUMIN/GLOBULIN RATIO 0.9 (1.0-2.7); ALKALINE PHOSPHATASE 60 U/L (46-116); ANION GAP 10 mmol/L (5-15); ASPARTATE AMINO TRANSFERASE 15 U/L (15-37); BILIRUBIN,TOTAL 0.4 MG/DL (0.2-1.0); BLOOD UREA NITROGEN 19 mg/dL (7-18); CALCIUM 9.2 MG/DL (8.5-10.1); CARBON DIOXIDE 26 MMOL/L (21-32); CHLORIDE 103 MMOL/L (98-107); CREATININE 0.9 MG/DL (0.55-1.30); SODIUM 139 MMOL/L (136-145)
[2018-05-26 14:03] LABS: POTASSIUM 2.7 MMOL/L (3.5-5.1)
--- NOTE | 2018-05-26 14:14 | Diagnostic Imaging Report ---
Indications: Head pain and discomfort when moving Technique: Spiral acquisitions obtained through the brain. Angled axial and coronal 5 x 5 mm slices were reconstructed. Total dose length product 1354.88 mGycm. CTDI vol(s) 70.38 mGy. Dose reduction achieved using automated exposure control Comparison: None. Findings: Perez-white differentiation is normal. Normal-sized ventricles and extra axial CSF spaces. No acute intracranial hemorrhage or edema. No mass effect nor midline shift. Intact calvarium. Possible empty sella. Visualized orbits and sinuses are unremarkable. The mastoids are clear Impression: Negative The CT scanner at [facility] is accredited by the [employer] and the scans are performed using protocols designed to limit radiation exposure to as low as reasonably achievable to attain images of sufficient resolution adequate for diagnostic evaluation.
--- NOTE | 2018-05-26 14:18 | Diagnostic Imaging Report ---
Indication: Severe neck pain after feeling neck crack Technique: Spiral acquisitions obtained through the cervical spine. No IV contrast utilized. Multiplanar reconstructions were generated. Total dose length product 290.3 mGycm. CTDIvol(s) 14.82 mGy. Dose reduction achieved using automated exposure control. Comparison: none Findings: There is reversal of the normal cervical lordosis. Otherwise normal bony alignment. No acute fractures. No dislocations. Vertebral body heights and disc spaces are preserved. At C4-5, there is minimal central posterior broad-based annular bulge. This, in combination with short pedicles results in mild narrowing of the spinal canal. The neural foramina are preserved. At the remaining levels, no significant disc bulge or protrusion, spinal stenosis, or neural foraminal stenosis. The included extra spinal soft tissues and upper aerodigestive tract are grossly unremarkable Impression: Slight reversal of the normal cervical lordosis, probably due to muscle spasm No acute bony trauma Minimal degenerative changes at C4-[address] scanner at [facility] is accredited by the [employer] and the scans are performed using protocols designed to limit radiation exposure to as low as reasonably achievable to attain images of sufficient resolution adequate for diagnostic evaluation.
[2018-05-26] MEDS ORDERED: IBUPROFEN800 M1 PO (14:51)
[2018-05-26] MEDS ORDERED: CYCLOBENZAPRINE10 MG ORAL (14:51)
[2018-05-26] MEDS ORDERED: NORCO 5-325 TA1 EACH ORAL (14:51)
[2018-05-26 15:05] VITALS: BP 111/63
--- NOTE | 2018-05-29 14:49 | Cardiology Report ---
APPROVED REPORT EKG Measurement Heart [id number] [place] [id number] Normal sinus rhythm Normal ECG
== END 2018-05-26 15:05 | disposition home or self-care (01) ==
LOC: EMR 12:41
DX: M50.30 Other cervical disc degeneration, unspecified cervical region (principal); M54.2 Cervicalgia; R55 Syncope and collapse; I10 Essential (primary) hypertension; G51.0 Bell's palsy
CPT/HCPCS: 36415; 70450; 72125; 80053; 85025; 93005; 96374; 99284; J1885